=== PATIENT | female | born 1955 | race Caucasian/White ===

== ENCOUNTER 2018-05-04 09:30 | Outpatient (CLI) | payer OTHER ==
[~2018-05-04 09:30] MED LIST: BONINE25 MG; DILTIAZEM 24HR120 MG; SYNTHROID75 MCG
== END 2018-05-04 09:52 | disposition home or self-care (01) ==
LOC: MAMO-SONO 09:30
DX: Z12.31 Encounter for screening mammogram for malignant neoplasm of breast (principal); R10.30 Lower abdominal pain, unspecified

== ENCOUNTER 2023-05-28 09:41 | Outpatient (CLI) | payer OTHER | END 2023-05-28 09:44 | disposition home or self-care (01) | LOC: MAMO-SONO 09:41 | DX: Z12.31 Encounter for screening mammogram for malignant neoplasm of breast (principal) ==